=== PATIENT | male | born 1995 | race Caucasian/White ===

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

== ENCOUNTER 2021-02-10 19:00 | Emergency (ER) | payer OTHER ==
[2021-02-10 19:09] VITALS: BP 102/63; PULSE 75; TEMP 97; BMI 33.4
[2021-02-10] MEDS ORDERED: IBUPROFEN 600 MG TABLET (FP) PO ONE ×2 (19:44→20:01)
[2021-02-14 03:07] LABS: SARS-CoV-2 NAA Detected (Not Detected)
== END 2021-02-10 20:56 | disposition home or self-care (01) ==
LOC: JERFT 19:00
DX: R05.1 Acute cough (principal); J06.9 Acute upper respiratory infection, unspecified
CPT/HCPCS: 99283-25; C9803; U0003; U0005

== ENCOUNTER 2022-06-24 20:15 | Emergency (ER) | payer OTHER ==
[2022-06-24 20:26] VITALS: BP 114/61; PULSE 65; RESP 18; TEMP 98.2; BMI 29.5
[2022-06-24] MEDS ORDERED: ACETAMINOPHEN 1000 MG/100 ML BAG IVPB ONE (20:43)
[2022-06-24] MEDS ORDERED: LACTATED RINGERS SOLUTION 1000 ML INFUS.BAG IV ONE (20:43)
[2022-06-24] MEDS ORDERED: FAMOTIDINE 20 MG/50 ML IVPB 20 MG/50 ML MG IVPB ONE ×2 (21:17→21:23)
[2022-06-24] MEDS ORDERED: MAG HYDROX/AL HYDROX/SIMETH 30 ML UNIT-DOSE CUP PO ONE (21:17)
[2022-06-24] MEDS ORDERED: ACETAMINOPHEN INJECTION 100 ML IVPB ONE (21:22)
[2022-06-24] MEDS ORDERED: MAG HYDROX/AL HYDROX/SIMETH 30 ML UNIT-DOSE CUP ONE ×2 (21:22→21:23)
[2022-06-24 21:47] LABS: URINE APPEARANCE CLEAR; URINE BILIRUBIN NEGATIVE (NEGATIVE); URINE COLOR YELLOW; URINE GLUCOSE (UA) NEGATIVE (NEGATIVE); URINE KETONE NEGATIVE (NEGATIVE); URINE LEUK ESTERASE NEGATIVE (NEGATIVE); URINE NITRITE NEGATIVE (NEGATIVE); URINE PROTEIN NEGATIVE (NEGATIVE)
[2022-06-24 22:05] LABS: POTASSIUM 3.9 mmol/L (3.5-5.1)
[2022-06-24 22:27] LABS: TOT PROT 7.3 g/dl (6.4-8.2)
[2022-06-24 22:40] LABS: BLOOD UREA NITROGEN 8.9 mg/dL (7-18)
[2022-06-24 22:42] LABS: BASO % 1.3 % (0-2.0); EOS % 1.9 % (0-4.5); HEMATOCRIT 44.6 % (35.4-49); HEMOGLOBIN 16.1 GM/dL (11.7-16.9); LYMPH % 41.3 % (8-40); MCH 31.4 pg (25.7-33.7); MCHC 36.2 g/dl (32.0-35.9); MEAN CELL VOLUME 86.8 fl (80-96); MEAN PLT VOLUME 10.5 fl (7.5-11.1); MONO % 9.4 % (3.8-10.2); NEUT % 46.1 % (42.8-82.8); PLATELET COUNT 195 10^3/uL (134-434); RBC 5.13 M/mm3 (4.00-5.60); RDW 13.1 % (11.9-15.9); WHITE BLOOD COUNT 7.5 K/mm3 (4.0-10.0)
[2022-06-24 22:59] LABS: CALCIUM 9.2 mg/dL (8.5-10.1)
== END 2022-06-25 00:37 | disposition home or self-care (01) ==
LOC: JER 20:15
PROC: 3E033GC Introduction of Other Therapeutic Substance into Peripheral Vein, Percutaneous Approach (ICD-10-PCS; principal; 2022-06-24)
PROC: 3E033GC Introduction of Other Therapeutic Substance into Peripheral Vein, Percutaneous Approach (ICD-10-PCS; 2022-06-24)
DX: R10.32 Left lower quadrant pain (principal); R31.9 Hematuria, unspecified
CPT/HCPCS: 36415; 74177-TC; 80053; 81003; 83690; 85025; 87086; 99285-25; Q9967